=== PATIENT | female | born 1970 | race American Indian/Alaskan Native ===

== ENCOUNTER 2020-06-25 12:14 | Emergency (ER) | payer MEDICARE ==
[2020-06-25 13:13] LABS: Bacteria,Urine 2+ /HPF (Negative); Bilirubin,Urine NEG (Negative); Blood,Urine LG (Negative); Color,Urine Yellow (Yellow); Mucus,Urine FEW /HPF
[2020-06-25 13:16] LABS: WBC,Urine > 182.0 /HPF (0.0-6.0)
[2020-06-25 13:17] LABS: HCG Qualitative,Urine Negative (Negative)
[2020-06-25] MEDS ORDERED: MORPHINE 4 MG/1 ML INJ IV ONE (15:24)
[2020-06-25] MEDS ORDERED: ONDANSETRON 4 MG ODT TAB PO ONE (15:25)
--- NOTE | 2020-06-25 15:26 | Emergency Department Report ---
<SALASTYE - Last Filed: 06/25/20 19:03> ED Abdominal Pain HPI - General Chief Complaint: Abdominal Pain Stated Complaint: LEF SIDE PAIN Time Seen by Provider: 06/25/20 14:57 Source: patient Mode of arrival: Ambulatory Limitations: No Limitations - History of Present Illness Initial Comments: 49-year-old -Lith[place]ian female with history of rheumatoid arthritis and fibromyalgia presents with complaints of lower abdominal pain and left flank pain x 2 days. Patient states her symptoms began with burning urination about 1 week ago that was treated with [id number] AZO. She states 2 days ago her symptoms suddenly began to worsen with left flank pain. She denies any fever/chills/sweats, nausea/vomiting/diarrhea, constipation, history of kidney stones, or history of recurrent UTIs. She rates her current pain as a 10/10 in severity and describes it as a stabbing pain. Denies any hematuria - Related Data Previous Rx's Medication Instructions Recorded Last Taken Type Ibuprofen [Motrin] 800 mg PO Q8HR PRN #21 tablet 05/01/20 Unknown Rx Acetaminophen/Codeine [Tylenol 1 tab PO Q8H PRN #5 tab 06/25/20 Unknown Rx /Codeine # 3 tab] Ciprofloxacin HCl [Ciprofloxacin 500 mg PO Q12HR 7 Days #14 tab 06/25/20 Unknown Rx TAB] Allergies Allergy/AdvReac Type Severity Reaction Status Date / Time No Known Allergies Allergy Unverified 05/01/20 15:40 ED Review of Systems Constitutional: denies: chills, fever, malaise Respiratory: denies: cough, shortness of breath Cardiovascular: denies: chest pain Gastrointestinal: abdominal pain. denies: nausea, vomiting, diarrhea, constipation, hematemesis, melena Genitourinary: urgency, dysuria, frequency. denies: hematuria, discharge Musculoskeletal: back pain (Left) Neurological: denies: headache, weakness, paresthesias ED Past Medical Hx - Past Medical History Previous Medical History?: Yes Hx Diabetes: Yes Hx Asthma: Yes Additional medical history: RA, Nerve pain, Fibromyalgia - Surgical History Past Surgical History?: Yes Additional Surgical History: Neck fusion, Right shoulder reconstruction surgery - Social History Smoking Status: Current Every Day Smoker Substance Use Type: None - Medications Home Medications: Home Medications Medication Instructions Recorded Confirmed Last Taken Type Ibuprofen [Motrin] 800 mg PO Q8HR PRN #21 tablet 05/01/20 Unknown Rx Acetaminophen/Codeine [Tylenol 1 tab PO Q8H PRN #5 tab 06/25/20 Unknown Rx /Codeine # 3 tab] Ciprofloxacin HCl [Ciprofloxacin 500 mg PO Q12HR 7 Days #14 tab 06/25/20 Unknow n Rx TAB] ED Physical Exam - General Limitations: No Limitations General appearance: alert, in no apparent distress - Head Head exam: Present: atraumatic, normocephalic - Eye Eye exam: Present: normal appearance. Absent: scleral icterus - ENT ENT exam: Present: mucous membranes moist - Neck Neck exam: Present: normal inspection - Respiratory Respiratory exam: Present: normal lung sounds bilaterally. Absent: respiratory distress - Cardiovascular Cardiovascular Exam: Present: regular rate, normal rhythm. Absent: systolic murmur, diastolic murmur, rubs, gallop - GI/Abdominal GI/Abdominal exam: Present: soft, normal bowel sounds. Absent: distended, tenderness, guarding, rebound, rigid - Extremities Exam Extremities exam: Present: normal inspection - Back Exam Back exam: Present: normal inspection, CVA tenderness (L). Absent: CVA tendern ess (R), paraspinal tenderness, vertebral tenderness - Neurological Exam Neurological exam: Present: alert, oriented X3, normal gait - Psychiatric Psychiatric exam: Present: normal affect, normal mood - Skin Skin exam: Present: warm, dry, intact, normal color. Absent: rash, cyanosis, diaphoretic, erythema ED Medical Decision Making - Lab Data Result diagrams: 06/25/20 15:32 06/25/20 15:32 Lab Results 06/25/20 06/25/20 06/25/20 Range/Units 12:49 15:32 15:32 WBC 10.2 (4.5-11.0) K/mm3 RBC 3.70 (3.65-5.03) M/mm3 Hgb 12.4 (10.1-14.3) gm/dl Hct 36.4 (30.3-42.9) % MCV 98 H (79-97) fl MCH 34 H (28-32) pg MCHC 34 (30-34) % RDW 13.2 (13.2-15.2) % Plt Count 315 (140-440) K/mm3 Lymph % (Auto) 9.4 L (13.4-35.0) % Bremer % (Auto) 8.3 H (0.0-7.3) % Eos % (Auto) 0.6 (0.0-4.3) % Baso % (Auto) 0.8 (0.0-1.8) % Lymph # 1.0 L (1.2-5.4) K/mm3 Bremer # 0.8 (0.0-0.8) K/mm3 Eos # 0.1 (0.0-0.4) K/mm3 Baso # 0.1 (0.0-0.1) K/mm3 Seg Neutrophils % 80.9 H (40.0-70.0) % Seg Neutrophils # 8.2 H (1.8-7.7) K/mm3 Sodium 137 (137-145) mmol/L Potassium 3.5 L (3.6-5.0) mmol/L Chloride 97.3 L (98-107) mmol/L Carbon Dioxide 25 (22-30) mmol/L Anion Gap 18 mmol/L BUN 19 H (7-17) mg/dL Creatinine 1.0 (0.6-1.2) mg/dL Estimated GFR > 60 ml/min BUN/Creatinine Ratio 19 % Glucose 427 H (65-100) mg/dL Calcium 10.0 (8.4-10.2) mg/dL Total Bilirubin 0.60 (0.1-1.2) mg/dL AST 35 (5-40) units/L ALT 33 (7-56) units/L Alkaline Phosphatase 253 H (35-129) units/L Total Protein 8.4 H (6.3-8.2) g/dL Albumin 3.4 L (3.9-5) g/dL Albumin/Globulin Ratio 0.7 % Lipase (13-60) units/L Urine Color Yellow (Yellow) Urine Turbidity Cloudy (Clear) Urine pH 5.0 (5.0-7.0) Ur Specific [place] 1.022 (1.003-1.030) Urine Protein 100 mg/dl (Negative) mg/dL Urine Glucose (UA) >=500 (Negative) mg/dL Urine Ketones 20 (Negative) mg/dL Urine Blood Lg (Negative) Urine Nitrite Neg (Negative) Urine Bilirubin Neg (Negative) Urine Urobilinogen 2.0 (<2.0) mg/dL Ur Leukocyte Esterase Lg (Negative) Urine WBC (Auto) > 182.0 H (0.0-6.0) /HPF Urine RBC (Auto) 10.0 (0.0-6.0) /HPF U Epithel Cells (Auto) 1.0 (0-13.0) /HPF Urine Bacteria (Auto) 2+ (Negative) /HPF Urine WBC Clumps 3+ /HPF Urine Mucus Few /HPF Urine HCG, Qual Negative (Negative) 06/25/20 Range/Units 18:00 WBC (4.5-11.0) K/mm3 RBC (3.65-5.03) M/mm3 Hgb (10.1-14.3) gm/dl Hct (30.3-42.9) % MCV (79-97) fl MCH (28-32) pg MCHC (30-34) % RDW (13.2-15.2) % Plt Count (140-440) K/mm3 Lymph % (Auto) (13.4-35.0) % Bremer % (Auto) (0.0-7.3) % Eos % (Auto) (0.0-4.3) % Baso % (Auto) (0.0-1.8) % Lymph # (1.2-5.4) K/mm3 Bremer # (0.0-0.8) K/mm3 Eos # (0.0-0.4) K/mm3 Baso # (0.0-0.1) K/mm3 Seg Neutrophils % (40.0-70.0) % Seg Neutrophils # (1.8-7.7) K/mm3 Sodium (137-145) mmol/L Potassium (3.6-5.0) mmol/L Chloride (98-107) mmol/L Carbon Dioxide (22-30) mmol/L Anion Gap mmol/L BUN (7-17) mg/dL Creatinine (0.6-1.2) mg/dL Estimated GFR ml/min BUN/Creatinine Ratio % Glucose (65-100) mg/dL Calcium (8.4-10.2) mg/dL Total Bilirubin (0.1-1.2) mg/dL AST (5-40) units/L ALT (7-56) units/L Alkaline Phosphatase (35-129) units/L Total Protein (6.3-8.2) g/dL Albumin (3.9-5) g/dL Albumin/Globulin Ratio % Lipase 28 (13-60) units/L Urine Color (Yellow) Urine Turbidity (Clear) Urine pH (5.0-7.0) Ur Specific [place] (1.003-1.030) Urine Protein (Negative) mg/dL Urine Glucose (UA) (Negative) mg/dL Urine Ketones (Negative) mg/dL Urine Blood (Negative) Urine Nitrite (Negative) Urine Bilirubin (Negative) Urine Urobilinogen (<2.0) mg/dL Ur Leukocyte Esterase (Negative) Urine WBC (Auto) (0.0-6.0) /HPF Urine RBC (Auto) (0.0-6.0) /HPF U Epithel Cells (Auto) (0-13.0) /HPF Urine Bacteria (Auto) (Negative) /HPF Urine WBC Clumps /HPF Urine Mucus /HPF Urine HCG, Qual (Negative) - Medical Decision Making Patient here with complaints of dysuria, lower abdominal pain, and left flank pain for the past week. Left CVA tenderness and lower abdominal pain noted on exam. CBC shows normal white count. CMP shows glucose elevated at 427-Pt states history of diabetes and states that she has not taken her insulin today due to her pain. Kidney function is. Alk phos also noted to be elevated in the 200s. On reexamination patient does have right upper quadrant pain. She denies any history of gallbladder disease or liver disease. Right upper quadrant ultrasound ordered. After half of the IV Rocephin was given, patient's IV infiltrated and she refused a second IV. 500 mg of Rocephin IM was ordered. Advised patient fluids were needed for her elevated glucose, however patient continues to refuse a new IV placement. Subcu insulin ordered at 15 units per patient's current dosage at home. Ultrasound is pending and patient's pain is well controlled at this time. Patient was handed off to JODI Ramon. Prescription for Cipro written for home. ED Disposition Clinical Impression: Pyelonephritis Disposition: DC- TO HOME OR SELFCARE Is pt being admited?: No Condition: Stable Instructions: Acute Pyelonephritis (ED) Prescriptions: Ciprofloxacin HCl [Ciprofloxacin TAB] 500 mg PO Q12HR 7 Days #14 tab Acetaminophen/Codeine [Tylenol /Codeine # 3 tab] 1 tab PO Q8H PRN #5 tab PRN Reason: Pain , Severe (7-10) Referrals: PRIMARY CARE, [Primary Care Provider] - 2-3 Days <YURIY SMITH - Last Filed: 06/25/20 21:28> ED Review of Systems ROS: Stated complaint: LEF SIDE PAIN Other details as noted in HPI ED Course Vital Signs 06/25/20 06/25/20 06/25/20 12:15 15:28 15:58 Temperature 98.4 F Pulse Rate 96 H Respiratory 18 18 16 Rate Blood Pressure 120/72 O2 Sat by Pulse 97 Oximetry 06/25/20 06/25/20 06/25/20 16:03 17:48 18:48 Temperature 100.3 F H Pulse Rate 94 H Respiratory 16 16 16 Rate Blood Pressure 146/81 O2 Sat by Pulse 100 Oximetry 06/25/20 19:02 Temperature Pulse Rate Respiratory 16 Rate Blood Pressure O2 Sat by Pulse Oximetry ED Medical Decision Making - Lab Data Result diagrams: 06/25/20 15:32 06/25/20 15:32 - Medical Decision Making 49-year-old patient with diagnosed Jose Guadalupe by Tye Benson was found to have elev ated alk phos for which reason right upper quadrant ultrasound was ordered and found to be of normal variation. There is been no worsening in her condition since awaiting the ultrasound report. We will continue with the previous plan performed by DIPESH Benson and made no adjustment to her disposition. Print Report Referring Physician:TYE BENSONPatient Name:CHELSEY RODRIGUEZPatient ID:[id number] of :[id number]:FemaleAccession:[id number] Date:[id number] Status:Finalized Findings [facility] [address] [place] [address] Ultrasound Report Signed Patient: CHELSEY RODRIGUEZ MR#: [id number] : 1970 Acct:[id number] Age/Sex: 49 / F ADM Date: 06/25/20 Loc: ED Attending Dr: Ordering Physician: TYE BENSON Date of Service: 06/25/20 Procedure(s): US abdomen limited Accession Number(s): [id number] cc: TYE BENSON ULTRASOUND ABDOMEN, COMPLETE INDICATION / CLINICAL INFORMATION: elevated alk phos, RUQ tenderness. COMPARISON: None available. FINDINGS: PANCREAS: No significant abnormality. ABDOMINAL AORTA: No significant abnormality. IVC: No significant abnormality. LIVER: Mild hepatic steatosis. No focal lesions. GALLBLADDER: No significant abnormality. BILE DUCTS: No significant abnormality. Common bile duct measures 1.3 mm. KIDNEYS: Right: No significant abnormality. Left: No significant abnormality. SPLEEN: No significant abnormality. FREE FLUID: None. ADDITIONAL FINDINGS: None. IMPRESSION: 1. No acute sonographic abnormality of the abdomen. 2. Mild hepatic steatosis. Signer Name: Sebas De Paz MD Signed: 06/25/2020 8:17 PM Workstation Name: [id number] Transcribed By: Dictated By: SEBAS DE PAZ Electronically Authenticated By: SEBAS DE PAZ Signed Date/Time: 06/25/202016 DD/ 14 TD/TT: Critical care attestation.: If time is entered above; I have spent that time in minutes in the direct care of this critically ill patient, excluding procedure time. ED Disposition Does the pt Need Aspirin: No
[2020-06-25] MEDS ORDERED: cefTRIAXone/NS 1 GM/50 ML 1 GM/50 ML BAG IV ONE (17:00)
[2020-06-25 17:14] LABS: Basophils # (Auto) 0.1 K/mm3 (0.0-0.1); Basophils % (Auto) 0.8 % (0.0-1.8); Eosinophils # (Auto) 0.1 K/mm3 (0.0-0.4); Eosinophils % (Auto) 0.6 % (0.0-4.3); Hematocrit 36.4 % (30.3-42.9); Hemoglobin 12.4 gm/dl (10.1-14.3); Lymphocytes % (Auto) 9.4 % (13.4-35.0); Mean Corpuscular HGB Conc 34 % (30-34); Mean Corpuscular Volume 98 fl (79-97); Monocytes # (Auto) 0.8 K/mm3 (0.0-0.8); Monocytes % (Auto) 8.3 % (0.0-7.3); Platelet Count 315 K/mm3 (140-440); Red Cell Distribution Width 13.2 % (13.2-15.2)
[2020-06-25 17:30] LABS: Alanine Aminotransferase 33 units/L (7-56); Albumin 3.4 g/dL (3.9-5); BUN/Creatinine Ratio 19; Blood Urea Nitrogen 19 mg/dL (7-17); Hemolysis Index 4
[2020-06-25] MEDS ORDERED: LIDOCAINE-MPF (1%) 10 MG/1 ML VIAL 5 ML INFILTRATI ONE (17:39)
[2020-06-25] MEDS ORDERED: ACETAMINOPHEN 325 MG TAB PO ONE (17:39)
[2020-06-25] MEDS ORDERED: INSULIN REGULAR, HUMAN 100 UNIT/ML 3ML VIAL SUB-Q ONE (17:47)
[2020-06-25] MEDS ORDERED: MORPHINE 4 MG/1 ML INJ IM ONE (17:53)
[2020-06-25] MEDS ORDERED: INSULIN REGULAR, HUMAN 100 UNITS/1 ML ONE (17:57)
--- NOTE | 2020-06-25 20:21 | Ultrasound Report ---
ULTRASOUND ABDOMEN, COMPLETE INDICATION / CLINICAL INFORMATION: elevated alk phos, RUQ tenderness. COMPARISON: None available. FINDINGS: PANCREAS: No significant abnormality. ABDOMINAL AORTA: No significant abnormality. IVC: No significant abnormality. LIVER: Mild hepatic steatosis. No focal lesions. GALLBLADDER: No significant abnormality. BILE DUCTS: No significant abnormality. Common bile duct measures 1.3 mm. KIDNEYS: Right: No significant abnormality. Left: No significant abnormality. SPLEEN: No significant abnormality. FREE FLUID: None. ADDITIONAL FINDINGS: None. IMPRESSION: 1. No acute sonographic abnormality of the abdomen. 2. Mild hepatic steatosis. Signer Name: Sebas Gutiérrez MD Signed: 06/25/2020 8:17 PM Workstation Name: [id number]
[2020-06-25 21:41] VITALS: BP 111/72
== END 2020-06-25 21:43 | disposition home or self-care (01) ==
LOC: ED 12:14
DX: N12 Tubulo-interstitial nephritis, not specified as acute or chronic (principal); E11.9 Type 2 diabetes mellitus without complications; J45.909 Unspecified asthma, uncomplicated; F17.200 Nicotine dependence, unspecified, uncomplicated; Z79.899 Other long term (current) drug therapy
CPT/HCPCS: 36415; 76705; 80053; 81001; 81025; 83690; 85025; 87086; 96365; 96372; 96375; 99284; J0696; J2270; J1815; Q0162